=== PATIENT | male | born 1950 | race Caucasian/White ===

== ENCOUNTER 2018-12-26 13:40 | Inpatient (IN) | payer BC ==
[2018-12-26] MEDS ORDERED: AZITHROMYCIN IVPB 500 MG in DEXTROSE 5%-WATER - 250 ML IVPB ONE (13:48)
[2018-12-26] MEDS ORDERED: CEFTRIAXONE 1,000 MG in DEXTROSE 5%-WATER - 50 ML IVPB ONE (13:48)
--- NOTE | 2018-12-26 13:49 | PDOC ---
History of Present Illness - General Chief Complaint: Respiratory Stated Complaint: COUGH Time Seen by Provider: 12/26/18 13:45 - History of Present Illness Initial Comments: 12/26/18 13:49 Mr. Cooney is a 68 yo male w/ pmh of chronic pain and chronic pain medication addiction (now s/p spinal surgery and taking suboxone and marijuana daily) who presents from PCP's office for evaluation of cough and sinus infection. Patient reports he has been on ABX for a sinus infection for the past 18 days ( ampicillin and amoxicillin) and has had a productive cough for the past week. Patient was at PCP's office earlier today who became concerned by his exam and sent him to ER. Patient currently concerned about cough primarily. Denies other symptoms. The patient denies chest pain, shortness of breath, headache and dizziness. Denies fever, chills, nausea, vomit, diarrhea and constipation. Denies dysuria, frequency, urgency and hematuria. Past History - Past Medical History Allergies/Adverse Reactions: Allergies Allergy/AdvReac Type Severity Reaction Status Date / Time pregabalin [From Lyrica] Allergy Intermediate Rash Verified 02/03/16 22:03 Home Medications: Ambulatory Orders Buprenorphine HCl/Naloxone HCl [Suboxone 8 mg-2 mg Sl Tablets] 1 each SL Dextroamphetamine/Amphetamine [Adderall 10 mg Tablet] 20 mg PO BID 12/26/18 Diabetes: Yes HTN: Yes - Surgical History Appendectomy: Yes - Immunization History Immunization Up to Date: Yes - Suicide/Smoking/Psychosocial Hx Smoking History: Never smoked Have you smoked in the past 12 months: No Hx Alcohol Use: No Drug/Substance Use Hx: No Substance Use Type: Prescribed Review of Systems - Review of Systems Comments:: 12/26/18 13:55 GENERAL/CONSTITUTIONAL: No fever or chills. No weakness. HEAD, EYES, EARS, NOSE AND THROAT: +Sinus pain over period of "sinus infection. " No change in vision. No ear pain or discharge. No sore throat. CARDIOVASCULAR: No chest pain or shortness of breath RESPIRATORY: +Productive cough x1 week. No wheezing or hemoptysis. GASTROINTESTINAL: No nausea, vomiting, diarrhea or constipation. GENITOURINARY: No dysuria, frequency, or change in urination. MUSCULOSKELETAL: No joint or muscle swelling or pain. No neck or back pain. SKIN: No rash NEUROLOGIC: No headache, vertigo, loss of consciousness, or change in strength/ sensation. ENDOCRINE: No increased thirst. No abnormal weight change HEMATOLOGIC/LYMPHATIC: No anemia, easy bleeding, or history of blood clots. ALLERGIC/IMMUNOLOGIC: No hives or skin allergy. *Physical Exam - Physical Exam Comments: 12/26/18 13:55 GENERAL: Awake, alert, and fully oriented, in no acute distress HEAD: No signs of trauma, normocephalic, atraumatic EYES: PERRLA, EOMI, sclera anicteric, conjunctiva clear ENT: Auricles normal inspection, hearing grossly normal, nares patent, oropharynx clear without exudates. Moist mucosa NECK: Normal ROM, supple, no lymphadenopathy, JVD, or masses LUNGS: +Crackles appreciated primarily on R side, however no distress, speaks full sentences HEART: Regular rate and rhythm, normal S1 and S2, no murmurs, rubs or gallops, peripheral pulses normal and equal bilaterally. ABDOMEN: Soft, nontender, normoactive bowel sounds. No guarding, no rebound. No masses EXTREMITIES: Normal inspection, Normal range of motion, no edema. No clubbing or cyanosis. NEUROLOGICAL: Cranial nerves II through XII grossly intact. Normal speech, normal gait, no focal sensorimotor deficits SKIN: Warm, Dry, normal turgor, no rashes or lesions noted. ED Treatment Course - LABORATORY CBC & Chemistry Diagram: 12/26/18 14:15 12/26/18 14:15 Medical Decision Making - Medical Decision Making 12/26/18 15:53 Mr. Cooney is a 68 yo male w/ pmh as described who presents for evaluation of symptoms concerning for failure of outpatient ABX in setting of a sinus infection. Patient evaluated with sepsis labs as below as well as EKG and CXR. EKG normal sinus rhythm, CXR non-contributory although pulmonary exam concerning for positive findings as above. Patient started on IV ABX. Patient will be admitted for inpatient ABX and further evaluation. Laboratory Results - last 24 hr 12/26/18 12/26/18 12/26/18 14:15 14:15 14:15 WBC 10.7 H RBC 4.46 Hgb 13.1 Hct 37.9 MCV 85.0 MCH 29.3 MCHC 34.5 RDW 12.9 Plt Count 253 MPV 8.8 Absolute Neuts (auto) 8.5 H Neutrophils % 80.0 Lymphocytes % 13.5 Monocytes % 5.8 Eosinophils % 0.4 Basophils % 0.3 Nucleated RBC % 0 PT with INR 12.40 INR 1.05 PTT (Actin FS) 31.5 Sodium 134 L Potassium 3.7 Chloride 92 L Carbon Dioxide 29 Anion Gap 13 BUN 13.0 Creatinine 0.9 Est GFR (CKD-EPI)AfAm 102.07 Est GFR (CKD-EPI)NonAf 88.07 Random Glucose 127 H Lactic Acid Calcium 8.9 Total Bilirubin 0.7 AST 21 ALT 18 Alkaline Phosphatase 79 Troponin I Total Protein 7.3 Albumin 4.5 12/26/18 12/26/18 14:15 14:15 WBC RBC Hgb Hct MCV MCH MCHC RDW Plt Count MPV Absolute Neuts (auto) Neutrophils % Lymphocytes % Monocytes % Eosinophils % Basophils % Nucleated RBC % PT with INR INR PTT (Actin FS) Sodium Potassium Chloride Carbon Dioxide Anion Gap BUN Creatinine Est GFR (CKD-EPI)AfAm Est GFR (CKD-EPI)NonAf Random Glucose Lactic Acid 0.9 Calcium Total Bilirubin AST ALT Alkaline Phosphatase Troponin I < 0.03 Total Protein Albumin *DC/Admit/Observation/Transfer Diagnosis at time of Disposition: Failure of outpatient treatment Pneumonia Qualifiers: Pneumonia type: due to unspecified organism Laterality: unspecified laterality Lung location: unspecified part of lung Qualified Code(s): J18.9 - Pneumonia, unspecified organism - Discharge Dispostion Condition at time of disposition: Stable Decision to Admit order: Yes - Referrals Referrals: Med Doss MD [Primary Care Provider] - - Patient Instructions - Post Discharge Activity
[2018-12-26 13:50] VITALS: BMI 26.6
[2018-12-26] MEDS ORDERED: ALBUTEROL SO4 2.5/IPRATROPIUM 0.5 INH SOL 3 ML VIAL.NEB. NEB ONE ×5 (13:52→20:14)
[2018-12-26] MEDS ORDERED: SODIUM CHLORIDE 1,000 ML IV STA (14:05)
--- NOTE | 2018-12-26 14:05 | PDOC ---
Attending Attestation - Resident Resident Name: Tony Bronson - ED Attending Attestation I have performed the following: I have examined & evaluated the patient, The case was reviewed & discussed with the resident, I agree w/resident's findings & plan, Exceptions are as noted - HPI HPI: 12/26/18 13:59 68-year-old male with history of chronic pain, daily marijuana use via vaping sent in from primary care office for pneumonia. The patient reports approximately 2 and half weeks of sinus infection which she took multiple oral antibiotics. Patient reported no improvement of symptoms but noted he had worsening coughing. The patient persistent cough but denies fevers at home. Denies chest pain but reports some increased shortness of breath. He went to visit his primary care physician's office, Dr. King, was concerned for pneumonia given his physical exam and sent the patient to the ER. - Physicial Exam PE: 12/26/18 14:00 GENERAL: Awake, alert, and fully oriented, in no acute distress HEAD: No signs of trauma EYES: EOMI, sclera anicteric, conjunctiva clear ENT: Auricles normal inspection, hearing grossly normal, nares patent, Moist mucosa NECK: Normal ROM, supple LUNGS: Diffuse ronchi and expiratory wheezing bilaterally. HEART: Regular rate and rhythm, normal S1 and S2, no murmurs, rubs or gallops. Tachycardic EXTREMITIES: Normal range of motion, no edema. No clubbing or cyanosis. No cords, erythema, or tenderness NEUROLOGICAL: Cranial nerves II through XII grossly intact. Normal speech, normal gait SKIN: Warm, Dry, normal turgor, no rashes or lesions noted. - Medical Decision Making 12/26/18 14:07 Vital Signs Temp Pulse Resp BP Pulse Ox 98.6 F 125 H 22 H 190/114 H 97 12/26/18 13:40 12/26/18 13:40 12/26/18 13:40 12/26/18 13:40 12/26/18 13:40 I agree that the patient clinically has PNA. The patient also has wheezing. He has never been formally diagnosed with asthma or COPD, but I wonder if the patient has developed some of these features given his smoking history. Will trial duonebs. Likely will need prednisone. Chest xray, labs. Empiric IV antibiotics (ceftriaxone and azithromycin). Case discussed with Dr. Baum. He and I both agree that patient should be admitted to the hospital. 12/26/18 16:44 CBC, BMP 12/26/18 14:15 12/26/18 14:15 CMP Sodium 134 mmol/L (136-145) L 12/26/18 14:15 Potassium 3.7 mmol/L (3.5-5.1) 12/26/18 14:15 Chloride 92 mmol/L (98-107) L 12/26/18 14:15 Carbon Dioxide 29 mmol/L (21-32) 12/26/18 14:15 Anion Gap 13 MMOL/L (8-16) 12/26/18 14:15 BUN 13.0 mg/dl (7-18) 12/26/18 14:15 Creatinine 0.9 mg/dl (0.55-1.3) 12/26/18 14:15 Est GFR (CKD-EPI)AfAm 102.07 12/26/18 14:15 Est GFR (CKD-EPI)NonAf 88.07 12/26/18 14:15 Random Glucose 127 mg/dl (74-106) H 12/26/18 14:15 Lactic Acid 0.9 mmol/L (0.4-2.0) 12/26/18 14:15 Calcium 8.9 mg/dl (8.5-10) 12/26/18 14:15 Total Bilirubin 0.7 mg/dl (0.2-1) 12/26/18 14:15 AST 21 U/L (15-37) 12/26/18 14:15 ALT 18 U/L (13-61) 12/26/18 14:15 Alkaline Phosphatase 79 U/L (45-117) 12/26/18 14:15 Troponin I < 0.03 ng/ml (0.00-0.05) 12/26/18 14:15 Total Protein 7.3 g/dl (6.4-8.2) 12/26/18 14:15 Albumin 4.5 g/dl (3.4-5.0) 12/26/18 14:15 Pt reports feeling better with duonebs, IV abx, and prednisone. Admit. Heart Score/ECG Review #1 ECG reviewed & interpreted by me at: 14:10 12/26/18 14:09 NSR 103, LVH, no std/fawn, normal axis, normal intervals, QTC 453 msec
[2018-12-26] MEDS ORDERED: predniSONE 20 MG TABLET (UD) PO ONE (14:13)
[2018-12-26] MEDS ORDERED: predniSONE 20 MG TABLET (UD) ONE (14:31)
[2018-12-26] MEDS ORDERED: AZITHROMYCIN 500 MG VIAL IVPB ONE (14:32)
[2018-12-26] MEDS ORDERED: cefTRIAXone SODIUM 1 GM VIAL ONE (14:32)
[2018-12-26 14:54] LABS: ALBUMIN 4.5 g/dl (3.4-5.0); BILIRUBIN,TOTAL 0.7 mg/dl (0.2-1); CALCIUM 8.9 mg/dl (8.5-10); CREATININE 0.9 mg/dl (0.55-1.3); POTASSIUM 3.7 mmol/L (3.5-5.1); TOT PROT 7.3 g/dl (6.4-8.2)
[2018-12-26 16:17] LABS: BASO % 0.3 % (0-2.0); EOS % 0.4 % (0-4.5); HEMATOCRIT 37.9 % (35.4-49); HEMOGLOBIN 13.1 GM/dL (11.7-16.9); LYMPH % 13.5 % (8-40); MCH 29.3 pg (25.7-33.7); MCHC 34.5 g/dl (32.0-35.9); MEAN PLT VOLUME 8.8 fl (7.5-11.1); MONO % 5.8 % (3.8-10.2); PLATELET COUNT 253 K/MM3 (134-434); RBC 4.46 M/mm3 (4.00-5.60); RDW 12.9 % (11.9-15.9); WHITE BLOOD COUNT 10.7 K/mm3 (4.0-10.0)
[2018-12-26 16:24] LABS: INR 1.05 (0.83-1.09); PROTHROMBIN TIME (PATIENT) 12.4 SEC (9.7-13.0)
[2018-12-26 16:27] LABS: ACTIVATED PTT 31.5 SECONDS (25.2-36.5)
[2018-12-26] MEDS ORDERED: ACETAMINOPHEN 325 MG TABLET (FP) PO PRN (16:47)
--- NOTE | 2018-12-26 17:02 | HP ---
Admitting History and Physical - Primary Care Physician PCP: Marlon Kamara - Admission Chief Complaint: "chest congestion" History of Present Illness: 68 year old M with long history of HTN, chronic narcotic addiction and chronic lower back pain with radiculopathy s/p spinal surgery presents to ED as referred by PCP for evaluation of chronic productive cough with abnormal pulm exam. Mr. Cooney reports symptoms started approximately 5 weeks ago with a toothache and blurred vision. He had dental visit revealing the need for root canal and a tooth extraction. His visual disturbance persisted, therefore, he underwent a CT scan demonstrating sinusitis for which he was treated with a course of ampicillin, then amoxicllin with minimal improvement. He was referred to neuro (Dr. 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 At this point, Mr. Cooney reports being unable to drive or ride his bicycle due to double vision and feeling off balance. On the morning of 12/26, he had a visit with pulmonology (Dr. King) for chronic productive cough. On exam, pt was noted to have adventitous breath sounds and referred to ED for further work up of possible PNA. In ED Vitals: T 98, HR 98, NBP 159/85, RR 16 CXR: without acute pathology Labs: unremarkable, trop x 2 negative, BNP 306 Pt treated with azithromycin, rocephin and nebs with significant improvement in symptoms. Decision made to admit for continued management. History Source: Patient Limitations to Obtaining History: No Limitations - Past Medical History Cardiovascular: Yes: HTN Psych: Yes: Addictions Musculoskeletal: Yes: Chronic low back pain Rheumatology: Yes: Fibromyalgia - Past Surgical History Past Surgical History: Yes: Appendectomy, Tonsillectomy Additional Past Surgical History: cervical spine fusion Lumbar spine decompression right eye laser surgery (due to glaucoma) - Smoking History Smoking history: Current every day smoker Have you smoked in the past 12 months: Yes Aproximately how many cigarettes per day: 1 (nicotine vaperizor) - Alcohol/Substance Use Hx Alcohol Use: No History of Substance Use: reports: Marijuana - Social History Usual Living Arrangement: Yes: With Spouse ADL: Independent Occupation: Disabled History of Recent Travel: No Home Medications - Allergies Allergies/Adverse Reactions: Allergies Allergy/AdvReac Type Severity Reaction Status Date / Time pregabalin [From Lyrica] Allergy Intermediate Rash Verified 02/03/16 22:03 - Home Medications Home Medications: Ambulatory Orders Buprenorphine HCl/Naloxone HCl [Suboxone 8 mg-2 mg Sl Tablets] 1.5 each SL BID 12/26/18 Dextroamphetamine/Amphetamine [Adderall 10 mg Tablet] 20 mg PO BID 12/26/18 Hydrochlorothiazide 1 tab PO DAILY 12/26/18 Family Disease History - Family Disease History Family Disease History: Other: Father ( (83) HTN, CVA), Mother ( (81) CHF), Brother ( (39) drug overdose), Sister (alive (59) well) Other Family History: Brother alive (58) well. PGF (80) HTN, CVA. MGF (94) natural causes. MGM (68) brain tumor Review of Systems - Review of Systems Constitutional: reports: Lethargy Eyes: reports: Blurred Vision HENT: reports: No Symptoms Neck: reports: Decreased ROM (chronic pain due to cervical spine disc disease) Cardiovascular: reports: No Symptoms Respiratory: reports: Cough Gastrointestinal: reports: No Symptoms Genitourinary: reports: No Symptoms Breasts: reports: No Symptoms Reported Musculoskeletal: reports: Back Pain (chronic Lower back pain) Integumentary: reports: No Symptoms Neurological: reports: Unsteady Gait Endocrine: reports: No Symptoms Hematology/Lymphatic: reports: No Symptoms Psychiatric: reports: No Symptoms Physical Examination Vital Signs: Vital Signs Temperature 98.6 F 12/26/18 13:40 Pulse Rate 89 12/26/18 16:17 Respiratory Rate 18 12/26/18 16:17 Blood Pressure 125/86 12/26/18 16:17 O2 Sat by Pulse Oximetry (%) 96 12/26/18 16:17 Constitutional: Yes: No Distress, Calm Eyes: Yes: Conjunctiva Clear, EOM Intact, PERRL HENT: Yes: Atraumatic, Normocephalic Neck: Yes: Supple, Trachea Midline, Decreased ROM (limited ROM due to prior surgery) Cardiovascular: Yes: Regular Rate and Rhythm Respiratory: Yes: Regular, Cough, On Nasal O2, Rhonchi Gastrointestinal: Yes: Normal Bowel Sounds, Soft ...Rectal Exam: Yes: Deferred Musculoskeletal: Yes: WNL Extremities: Yes: WNL Edema: Yes Edema: LLE: Trace, RLE: Trace Peripheral Pulses WNL: Yes Peripheral Pulses: Left Radial: 2+, Right Radial: 2+, Left Doralis Pedis: 2+, Right Dorsalis Pedis: 2+ Integumentary: Yes: WNL Neurological: Yes: Alert, Oriented ...Motor Strength: WNL Psychiatric: Yes: Alert, Oriented Labs: CBC, BMP 12/26/18 14:15 12/26/18 14:15 Imaging - Results Chest X-ray: Report Reviewed (CXR 12/26/2018 No acute pathology) Problem List - Problems (1) Pneumonia Assessment/Plan: Azithromycin 500mg daily x 4 more doses Ceftriaxone 1g daily duonebs QID trend WBC and temp curve Code(s): J18.9 - PNEUMONIA, UNSPECIFIED ORGANISM Qualifiers: Pneumonia type: due to unspecified organism Laterality: unspecified laterality Lung location: unspecified part of lung Qualified Code(s): J18.9 - Pneumonia, unspecified organism (2) Medication addiction, continuous Assessment/Plan: suboxone 8/2mg 1.5 tab SL BID Code(s): F19.20 - OTHER PSYCHOACTIVE SUBSTANCE DEPENDENCE, UNCOMPLICATED (3) Hypertension Assessment/Plan: continue clonidine q6hrs HCTZ 12.5mg daily routine echo ordered due to longstanding uncontrolled BP cardiac diet Code(s): I10 - ESSENTIAL (PRIMARY) HYPERTENSION (4) Adult attention deficit hyperactivity disorder Assessment/Plan: Adderall 20mg daily (pt can take his own meds) Code(s): F90.9 - ATTENTION-DEFICIT HYPERACTIVITY DISORDER, UNSPECIFIED TYPE Assessment/Plan Code status: Full Visit type - Emergency Visit Emergency Visit: Yes Care time: The patient presented to the Emergency Department on the above date and was hospitalized for further evaluation of their emergent condition. - New Patient This patient is new to me today: Yes Date on this admission: 12/26/18 - Critical Care Critical Care patient: No
[2018-12-26] MEDS ORDERED: POTASSIUM CHLORIDE TABS 20 MEQ TABLET.ER (FP) PO ONE ×2 (17:21→17:49)
[2018-12-26 18:39] LABS: ARTERIAL BLD GAS O2 SATURATION 95.8 % (95-98); ARTERIAL BLOOD GAS BASE EXCESS 1.1 meq/l (-2-2); ARTERIAL BLOOD GAS PO2 79.1 mmHg (80-105); ARTERIAL BLOOD GAS pH 7.39 (7.35-7.45)
[2018-12-26 18:42] LABS: CARBOXYHEMOGLOBIN 0.7 % (0-2)
[2018-12-26] MEDS: cloNIDine HCL 0.1 MG TABLET PO SCH (18:44)
[2018-12-26] MEDS: ALBUTEROL SO4 2.5/IPRATROPIUM 0.5 INH SOL 3 ML VIAL.NEB. NEB SCH (20:20)
[2018-12-26] MEDS ORDERED: SENNOSIDES 8.6MG TABLET (FP) PO SCH (22:00)
[2018-12-26] MEDS ORDERED: PATIENT'S OWN MEDICATION (NON-FORMULARY) (Dextroamphetamine/Amphetamine [Adderall 10 Mg Ta PO SCH (22:00)
[2018-12-26] MEDS: HEPARIN NA (PORCINE) 5,000 UNITS/ML 1ML VIAL SQ SCH (23:43)
[2018-12-27] MEDS: cloNIDine HCL 0.1 MG TABLET PO SCH ×3 (00:12→12:33)
[2018-12-27] MEDS ORDERED: PT OWN MED DRAWER 7, Y5N ONE (03:39)
[2018-12-27] MEDS: DOCUSATE SODIUM 100 MG CAPSULE (FP) PO SCH ×2 (06:49→10:00)
[2018-12-27 08:23] LABS: MAGNESIUM 2.2 mg/dL (1.8-2.4)
[2018-12-27 08:26] LABS: BASO % 0.1 % (0-2.0); EOS % 0.1 % (0-4.5); HEMATOCRIT 36.7 % (35.4-49); HEMOGLOBIN 12.4 GM/dl (11.7-16.9); MCH 29.6 pg (25.7-33.7); MCHC 33.7 g/dl (32.0-35.9); MONO % 5.8 % (3.8-10.2); PLATELET COUNT 244 K/MM3 (134-434); RBC 4.17 M/mm3 (4.00-5.60); RDW 12.1 % (11.9-15.9); WHITE BLOOD COUNT 10.5 K/mm3 (4.0-10.8)
[2018-12-27 09:41] LABS: N-TERMINAL BNP 649.9 pg/ml (5-125)
[2018-12-27] MEDS: ALBUTEROL SO4 2.5/IPRATROPIUM 0.5 INH SOL 3 ML VIAL.NEB. NEB SCH (09:57)
[2018-12-27] MEDS ORDERED: AZITHROMYCIN 500 MG TABLET PO SCH (10:00)
[2018-12-27] MEDS ORDERED: CEFTRIAXONE 1 GM in DEXTROSE 5%-WATER - 50 ML IVPB SCH (10:00)
[2018-12-27] MEDS: HEPARIN NA (PORCINE) 5,000 UNITS/ML 1ML VIAL SQ SCH (10:00)
[2018-12-27] MEDS ORDERED: BUPRENORPHINE/NALOXONE 8 MG/2 MG FILM PACKET SL SCH ×2 (10:00)
[2018-12-27] MEDS ORDERED: CEFTRIAXONE 1 G/50 ML PREMIX 50 ML IVPB SCH (10:00)
[2018-12-27] MEDS ORDERED: PANTOPRAZOLE 40 MG TABLET (FP) PO SCH (10:00)
[2018-12-27] MEDS ORDERED: HYDROCHLOROTHIAZIDE 12.5 MG CAPSULE (FP) PO SCH (10:00)
[2018-12-27] MEDS ORDERED: PATIENT'S OWN MEDICATION (NON-FORMULARY) (Dextroamphetamine/Amphetamine [Adderall 10 Mg Ta PO SCH (10:00)
--- NOTE | 2018-12-27 10:15 | PN ---
Progress Note (short form) - Note Progress Note: PULMONARY CONSULTATION DICTATED 12/27/18 IMP ACUTE ASTHMATIC BRONCHITIS LIKELY SECONDARY TO URI HTN H/O CHRONIC PAIN PLAN ABX INHALED BRONCHODILATORS MEDROL X 24HRS PFTS OUTPATIENT CHEST CT DR RAMÍREZ Problem List - Problems (1) Asthmatic bronchitis Code(s): J45.909 - UNSPECIFIED ASTHMA, UNCOMPLICATED (2) Adult attention deficit hyperactivity disorder Code(s): F90.9 - ATTENTION-DEFICIT HYPERACTIVITY DISORDER, UNSPECIFIED TYPE (3) Failure of outpatient treatment Code(s): Z78.9 - OTHER SPECIFIED HEALTH STATUS (4) Hypertension Code(s): I10 - ESSENTIAL (PRIMARY) HYPERTENSION (5) Chronic pain Code(s): G89.29 - OTHER CHRONIC PAIN (6) Pneumonia Code(s): J18.9 - PNEUMONIA, UNSPECIFIED ORGANISM Qualifiers: Pneumonia type: due to unspecified organism Laterality: unspecified laterality Lung location: unspecified part of lung Qualified Code(s): J18.9 - Pneumonia, unspecified organism
--- NOTE | 2018-12-27 10:33 | EKG ---
Test Reason : Blood Pressure : / mmHG Vent. Rate : 103 BPM Atrial Rate : 103 BPM P-R Int : 168 ms QRS Dur : 086 ms QT Int : 346 ms P-R-T Axes : 069 044 036 degrees QTc Int : 453 ms SINUS TACHYCARDIA MODERATE VOLTAGE CRITERIA FOR LVH, MAY BE NORMAL VARIANT BORDERLINE ECG NO PREVIOUS ECGS AVAILABLE Confirmed by Titi Solis MD ([id number]) on 12/27/2018 10:32:54 AM Referred By: MD CLEMENS Confirmed By:Titi Solis MD
[2018-12-27] MEDS ORDERED: methylPREDNISolone NA SUCC 40 MG/1 ML VIAL IVPUSH SCH (11:30)
--- NOTE | 2018-12-27 14:13 | DS ---
Physical Exam: SUBJECTIVE: Patient seen and examined OBJECTIVE: Vital Signs Period Temp Pulse Resp BP Sys/Mckinney Pulse Ox Last 24 Hr 97.6 F-98.2 F 64-98 16-19 125-165/53-88 96-100 PHYSICAL EXAM GENERAL: The patient is awake, alert, and fully oriented, in no acute distress. HEAD: Normal with no signs of trauma. EYES: PERRL, extraocular movements intact, sclera anicteric, conjunctiva clear. ENT: Ears normal, nares patent, oropharynx clear without exudates, moist mucous membranes. NECK: Trachea midline, full range of motion, supple. LUNGS: Breath sounds equal, clear to auscultation bilaterally, no wheezes, no crackles, no accessory muscle use. HEART: Regular rate and rhythm, S1, S2 without murmur, rub or gallop. ABDOMEN: Soft, nontender, nondistended, normoactive bowel sounds, no guarding, no rebound, no hepatosplenomegaly, no masses. EXTREMITIES: 2+ pulses, warm, well-perfused, no edema. NEUROLOGICAL: Cranial nerves II through XII grossly intact. Normal speech, gait not observed. PSYCH: Normal mood, normal affect. SKIN: Warm, dry, normal turgor, no rashes or lesions noted. LABS Laboratory Results - last 24 hr 12/26/18 12/26/18 12/26/18 14:15 14:15 14:15 WBC 10.7 H RBC 4.46 Hgb 13.1 Hct 37.9 MCV 85.0 MCH 29.3 MCHC 34.5 RDW 12.9 Plt Count 253 MPV 8.8 Absolute Neuts (auto) 8.5 H Neutrophils % 80.0 Lymphocytes % 13.5 Monocytes % 5.8 Eosinophils % 0.4 Basophils % 0.3 Nucleated RBC % 0 PT with INR 12.40 INR 1.05 PTT (Actin FS) 31.5 Anticoagulation Therapy Puncture Site ABG pH ABG pCO2 at Pt Temp ABG pO2 at Pt Temp ABG HCO3 ABG O2 Sat (Measured) ABG O2 Content ABG Base Excess Ulises Test Carboxyhemoglobin Methemoglobin O2 Delivery Device Oxygen Flow Rate Vent Mode Vent Rate Mechanical Rate Pressure Support Vent Sodium 134 L Potassium 3.7 Chloride 92 L Carbon Dioxide 29 Anion Gap 13 BUN 13.0 Creatinine 0.9 Est GFR (CKD-EPI)AfAm 102.07 Est GFR (CKD-EPI)NonAf 88.07 Random Glucose 127 H Lactic Acid Calcium 8.9 Magnesium Total Bilirubin 0.7 AST 21 ALT 18 Alkaline Phosphatase 79 Creatine Kinase Troponin I B-Natriuretic Peptide Total Protein 7.3 Albumin 4.5 TSH 12/26/18 12/26/18 12/26/18 14:15 14:15 16:55 WBC RBC Hgb Hct MCV MCH MCHC RDW Plt Count MPV Absolute Neuts (auto) Neutrophils % Lymphocytes % Monocytes % Eosinophils % Basophils % Nucleated RBC % PT with INR INR PTT (Actin FS) Anticoagulation Therapy Puncture Site ABG pH ABG pCO2 at Pt Temp ABG pO2 at Pt Temp ABG HCO3 ABG O2 Sat (Measured) ABG O2 Content ABG Base Excess Ulises Test Carboxyhemoglobin Methemoglobin O2 Delivery Device Oxygen Flow Rate Vent Mode Vent Rate Mechanical Rate Pressure Support Vent Sodium Potassium Chloride Carbon Dioxide Anion Gap BUN Creatinine Est GFR (CKD-EPI)AfAm Est GFR (CKD-EPI)NonAf Random Glucose Lactic Acid 0.9 Calcium Magnesium Total Bilirubin AST ALT Alkaline Phosphatase Creatine Kinase Troponin I < 0.03 < 0.03 B-Natriuretic Peptide Total Protein Albumin TSH 12/26/18 12/26/18 12/26/18 17:00 17:40 17:40 WBC RBC Hgb Hct MCV MCH MCHC RDW Plt Count MPV Absolute Neuts (auto) Neutrophils % Lymphocytes % Monocytes % Eosinophils % Basophils % Nucleated RBC % PT with INR INR PTT (Actin FS) Anticoagulation Therapy No Result Required. Puncture Site No Result Required. ABG pH 7.39 ABG pCO2 at Pt Temp 44.0 ABG pO2 at Pt Temp 79.1 L ABG HCO3 25.9 ABG O2 Sat (Measured) 95.8 ABG O2 Content 18.8 ABG Base Excess 1.1 Ulises Test No Result Required. Carboxyhemoglobin 0.7 Methemoglobin 0.3 O2 Delivery Device No Result Required. Oxygen Flow Rate No Result Required. Vent Mode No Result Required. Vent Rate No Result Required. Mechanical Rate No Result Required. Pressure Support Vent No Result Required. Sodium Potassium Chloride Carbon Dioxide Anion Gap BUN Creatinine Est GFR (CKD-EPI)AfAm Est GFR (CKD-EPI)NonAf Random Glucose Lactic Acid Calcium Magnesium Total Bilirubin AST ALT Alkaline Phosphatase Creatine Kinase Troponin I B-Natriuretic Peptide 306.7 H Total Protein Albumin TSH 12/27/18 12/27/1812/27/19 07:37 07:37 07:37 WBC 10.5 RBC 4.17 Hgb 12.4 Hct 36.7 MCV 88.0 MCH 29.6 MCHC 33.7 RDW 12.1 Plt Count 244 MPV 9.0 Absolute Neuts (auto) 8.3 Neutrophils % 79.0 Lymphocytes % 15.0 Monocytes % 5.8 Eosinophils % 0.1 Basophils % 0.1 Nucleated RBC % PT with INR INR PTT (Actin FS) Anticoagulation Therapy Puncture Site ABG pH ABG pCO2 at Pt Temp ABG pO2 at Pt Temp ABG HCO3 ABG O2 Sat (Measured) ABG O2 Content ABG Base Excess Ulises Test Carboxyhemoglobin Methemoglobin O2 Delivery Device Oxygen Flow Rate Vent Mode Vent Rate Mechanical Rate Pressure Support Vent Sodium Potassium Chloride Carbon Dioxide Anion Gap BUN Creatinine Est GFR (CKD-EPI)AfAm Est GFR (CKD-EPI)NonAf Random Glucose Lactic Acid Calcium Magnesium 2.2 Total Bilirubin AST ALT Alkaline Phosphatase Creatine Kinase 114 Troponin I B-Natriuretic Peptide 649.9 H Total Protein Albumin TSH 0.28 L HOSPITAL COURSE: Date of Admission:12/26/18 Date of Discharge: 12/27/18 pre-post: sat 98% on room air at rest, 100% on room air with flat surface walking Minutes to complete discharge: 35 Discharge Summary Reason For Visit: FAILURE OF OUTPATIENT TREATMENT Current Active Problems Adult attention deficit hyperactivity disorder (Acute) Asthmatic bronchitis (Acute) Failure of outpatient treatment (Acute) Hypertension (Acute) Pneumonia (Acute) Condition: Improved - Instructions Diet, Activity, Other Instructions: A prescription for a Medrol Dosepak has been sent to your pharmacy. Take this medication as directed and be sure to finish all the medication. Referrals: Med Doss MD [Primary Care Provider] - Disposition: HOME - Home Medications Comprehensive Discharge Medication List: Ambulatory Orders Buprenorphine HCl/Naloxone HCl [Suboxone 8 mg-2 mg Sl Tablets] 1.5 each SL BID 12/26/18 Dextroamphetamine/Amphetamine [Adderall 10 mg Tablet] 20 mg PO BID 12/26/18 Hydrochlorothiazide 1 tab PO DAILY 12/26/18 Azithromycin [Zithromax] 500 mg PO DAILY tablet 12/27/18 Methylprednisolone [Medrol Dose A[place]] 4 mg PO ASDIR #21 tablet 12/27/18 This patient is new to me today: Yes Date on this admission: 12/27/18 Emergency Visit: Yes ED Registration Date: 12/26/18 Care time: The patient presented to the Emergency Department on the above date and was hospitalized for further evaluation of their emergent condition. Critical Care patient: No - Discharge Referral Referred to [facility] Med P.C.: Yes Physician Referral: Marlon Kamara MD (Int Med)
--- NOTE | 2018-12-27 14:19 | ECHO ---
Name: BONITA ROCK Exam:Adult Echocardiogram Study Date: 12/27/2018 01:22 PM Age: 68 yrs Reason For Study: HTN Height: 65 in Weight: 161 lb BSA: 1.8 m2 MMode/2D Measurements & Calculations IVSd: 1.1 cm Ao root diam: 3.2 cm LVIDd: 3.7 cm LA dimension: 3.5 cm LVIDs: 2.5 cm LVPWd: 1.0 cm EDV(Teich): 58.8 ml LVOT diam: 2.0 cm ESV(Teich): 21.7 ml Doppler Measurements & Calculations MV E max mary: 101.6 cm/sec MV A max mary: 103.8 cm/sec MV dec slope: 542.8 cm/sec2 MV E/A: 0.98 Ao V2 max: 151.8 cm/sec LV V1 max P.9 mmHg Ao max P.2 mmHg LV V1 max: 98.4 cm/sec ALEXANDRA(V,D): 2.0 cm2 MR max mary: 227.7 cm/sec TR max mary: 279.6 cm/sec MR max P.7 mmHg TR max P.4 mmHg PA V2 max: 78.5 cm/sec PA max P.5 mmHg Procedure A complete two-dimensional transthoracic echocardiogram was performed (2D, M-mode, Doppler and color flow Doppler). Left Ventricle The left ventricular size, thickness and function are normal. Ejection Fraction = 65%. E/A reversal c onsistent with but not diagnostic of poor LV compliance. The left ventricular wall motion is normal. Right Ventricle The right ventricle is normal in size and function. Atria Normal left and right atrial size and function. Mitral Valve There is mild mitral annular calcification. There is trace to mild mitral regurgitation. Tricuspid Valve The tricuspid valve is normal in structure and function. There is mild tricuspid regurgitation. Right ventricular systolic pressure is 35 mmhg. Aortic Valve The aortic valve is normal in structure and function. Trace aortic regurgitation. Pulmonic Valve The pulmonic valve is not well visualized. Great Vessels The aortic root is normal size. Pericardium/Pleura There is no pericardial effusion. There is no pleural effusion. Interpretation Summary The left ventricular size, thickness and function are normal Ejection Fraction = 65%. The right ventricle is normal in size and function. Normal left and right atrial size and function. There is mild mitral annular calcification. There is trace to mild mitral regurgitation. There is mild tricuspid regurgitation. Right ventricular systolic pressure is 35 mmhg. Trace aortic regurgitation. MD Titi Solis 12/27/2018 02:19 PM
[2018-12-27 14:28] VITALS: BP 148/63; PULSE 73; TEMP 98.9
--- NOTE | 2018-12-27 15:41 | CONS ---
DATE OF CONSULTATION: 12/27/2018 PULMONARY CONSULTATION REFERRING CONSTITUTION PARTY: Amarilis Musa N.P. HISTORY OF PRESENT ILLNESS: The patient is a 68-year-old white male with a past medical history of hypertension,chronic lower back pain, status post spinal surgery, History of radiculopathy. Nonsmoker. Admitted to [facility] with a history of shortness of breath, cough, and chest congestion. Patient states for the past week or so he started noticing increasing shortness of breath and cough. He had sputum productive of green sputum. He went to see Dr. King on the day of admission, at which time he was noted to be congested and advised to go to the emergency room. In the ER, he had a chest x-ray performed which showed no definitive infiltrate but he was admitted to the floor and started on antibiotic therapy with inhaled bronchodilators. He is a nonsmoker. There is no history of occupational exposure to chemicals or fumes. Initially patient states the symptoms started feeling ill approximately 5 weeks ago, at the time he had blurred vision and toothaches. Apparently he had a dental visit that he apparently needed a root canal and tooth extraction. He apparently his visual disturbances persisted, and he underwent a CT scan of the sinuses, revealed evidence of sinusitis, and he was advised amoxicillin with minimal improvement. He also was informed by Dr. Abdi that he has facial nerve palsy and was sent for evaluation MRI. Patient denies any fevers or sweats, denies any hemoptysis. Denies any chest pains or palpitations. PAST MEDICAL HISTORY: Again includes hypertension, and chronic lower back pain, radiculopathy status post spinal surgery as well as hypertension. SOCIAL HISTORY: Nonsmoker, retired, previously employed as [employer]. No occupational exposures. No recent travel. CURRENT MEDICATIONS: Include Adderall, Zithromax, heparin, DuoNeb, Colace, senna, Catapres, ceftriaxone. PHYSICAL EXAMINATION: GENERAL: The patient is a well-developed, well-nourished male, awake, alert, comfortable, in no acute respiratory distress. He is afebrile. VITAL SIGNS: Blood pressure 141/53, the respiratory rate is 19, and O2 saturation 97% on room air. HEENT: Normocephalic, atraumatic. NECK: Supple. HEART: Regular S1, S2. CHEST: Bilateral rhonchi predominantly more pronounced on the left with one- third up. ABDOMEN: Soft, bowel sounds positive. EXTREMITIES: No cyanosis, edema. LABORATORY: WBC is 10.5, hemoglobin 12.4, hematocrit 36.7, platelet count of 244,000. Blood gas: pH 7.39, pCO2 of 44, pO2 of 79, bicarbonate of 25, and saturation of 95.8. Chemistries: BUN is 13, creatinine 0.9. Chest x-ray, no definitive infiltrates or effusions. IMPRESSION: 1. Cough, chest congestion, likely secondary to acute asthmatic bronchitis, likely secondary to upper respiratory infection. 2. Hypertension. 3. Attention deficit disorder. 4. Chronic back pain. PLAN: Continue inhaled bronchodilators, antibiotics, CT scan of the chest, Solu-Medrol 40 q.6 for 24 hours, obtain PFTs as outpatient. MARIYA RAMÍREZ M.D. [id number] MTDD
== END 2018-12-27 16:01 | disposition home or self-care (01) | DRG 202 ==
LOC: FER 13:40 → FM/S 15:55
PROVIDERS: ADMIT Internal Medicine; ATTEND Nurse Practitioner Acute Care
DX: J45.901 Unspecified asthma with (acute) exacerbation (principal); J18.9 Pneumonia, unspecified organism; F90.9 Attention-deficit hyperactivity disorder, unspecified type; Z78.9 Other specified health status; I10 Essential (primary) hypertension; G89.29 Other chronic pain; M54.9 Dorsalgia, unspecified; J06.9 Acute upper respiratory infection, unspecified
CPT/HCPCS: 36415; 36600; 71045-TC-FY; 71250-TC; 80053; 82375; 82550; 82803; 83050; 83605; 83735; 83880; 84443; 84484; 85025; 85610; 85730; 87040; 93005; 93306-TC; 94640; 94761; 99285-25; J0735; J1644; J7030

== ENCOUNTER 2021-07-28 14:45 | Emergency (ER) | payer OTHER, BC ==
[2021-07-28 15:07] VITALS: BP 170/66; PULSE 96; TEMP 98.7; BMI 25.7
[2021-07-28 16:28] LABS: ALBUMIN 3.7 g/dl (3.4-5.0); BILIRUBIN,TOTAL 0.5 mg/dl (0.2-1); CALCIUM 8.7 mg/dl (8.5-10); CREATININE 0.8 mg/dl (0.55-1.3); TOT PROT 5.9 g/dl (6.4-8.2)
[2021-07-28 17:17] LABS: BASO % 0.4 % (0-2.0); EOS % 0.8 % (0-4.5); HEMATOCRIT 33.7 % (35.4-49); HEMOGLOBIN 11.3 GM/dL (11.7-16.9); LYMPH % 12.1 % (8-40); MCH 29.2 pg (25.7-33.7); MCHC 33.6 g/dl (32.0-35.9); MEAN CELL VOLUME 86.9 fl (80-96); MONO % 5.3 % (3.8-10.2); NEUT % 81.4 % (42.8-82.8); PLATELET COUNT 198 10^3/uL (134-434); RBC 3.88 M/mm3 (4.00-5.60); RDW 13.1 % (11.9-15.9); WHITE BLOOD COUNT 8.7 K/mm3 (4.0-10.0)
[2021-07-28] MEDS ORDERED: CEPHALEXIN MONOHYDRATE 500 MG CAPSULE (UD) PO ONE (17:35)
[2021-07-28] MEDS ORDERED: SULFAMETHOXAZOLE/TRIMETHOPRIM 800MG/160MG D.S. TABLET PO ONE (17:35)
[2021-07-28] MEDS ORDERED: CEPHALEXIN MONOHYDRATE 500 MG CAPSULE (UD) ONE (17:51)
[2021-07-28] MEDS ORDERED: SULFAMETHOXAZOLE/TRIMETHOPRIM 800MG/160MG D.S. TABLET ONE (17:51)
== END 2021-07-28 17:59 | disposition home or self-care (01) ==
LOC: FER 14:45
DX: L03.116 Cellulitis of left lower limb (principal); L03.115 Cellulitis of right lower limb
CPT/HCPCS: 36415; 73590-TC-RT-FY; 80053; 83880; 84484; 85025; 87040; 93005; 93970-TC; 99285-25; C9803; U0003; U0005

== ENCOUNTER 2023-08-10 04:16 | Day surgery (SDC) | payer OTHER, BC ==
[2023-08-09 15:05] VITALS: BMI 23.9
[2023-08-10 10:45] VITALS: TEMP 97.3
[2023-08-10 11:15] VITALS: BP 155/65; PULSE 67; RESP 15
== END 2023-08-10 11:25 | disposition home or self-care (01) ==
LOC: JASU-ENDO 04:16
PROVIDERS: ATTEND Internal Medicine Gastroenterology
PROC: 0DBL8ZX Excision of Transverse Colon, Via Natural or Artificial Opening Endoscopic, Diagnostic (ICD-10-PCS; principal; 2023-08-10 09:00)
DX: D12.3 Benign neoplasm of transverse colon (principal); K64.8 Other hemorrhoids; I10 Essential (primary) hypertension; E11.9 Type 2 diabetes mellitus without complications
CPT/HCPCS: 88305-TC